=== PATIENT | female | born 1940 | race Caucasian/White ===

== ENCOUNTER 2017-05-16 13:45 | Inpatient (IN) | payer OTHER ==
[~2017-05-16] VITALS: Ht 144.8 cm; Wt 101.3 kg
[~2017-05-16 13:45] MED LIST: COL100 PO; ENALAPRIL10 M1 PO; FLAGYL500 MG PO; GLIPIZIDE10 MG PO; LAC PO; LANTUS SOLOS100 U/M1 SQ; LEVAQUIN500 MG PO; LORAZEPAM1 MG PO; METFORMIN HCL1000 MG PO; NITROGLYCERIN0.4 MG SL; REGLAN10 MG PO
[2017-05-16 14:52] LABS: BASOPHIL % 0.9 % (0-2); PLATELET COUNT 337 x10^3mcL (130-400)
[2017-05-16 14:58] LABS: RED CELL DISTRIBUTION WIDTH 15.1 % (11.5-14.5)
[2017-05-16] MEDS ORDERED: COQ1050 MG PO (15:56)
[2017-05-16] MEDS ORDERED: ACTOS15 M1 PO (15:56)
[2017-05-16 16:30] LABS: CALCIUM 8.9 mg/dL (8.5-10.1); CARBON DIOXIDE 24.3 mmol/L (21-32); CHLORIDE SERUM 102 mmol/L (98-107); CREATININE SERUM 1.2 mg/dL (0.6-1.0); GLUCOSE SERUM 207 mg/dL (74-106); POTASSIUM SERUM 4.2 mmol/L (3.5-5.1); SODIUM SERUM 140 mmol/L (136-145)
[2017-05-16 16:35] LABS: ALBUMIN 3.4 g/dL (3.4-5.0); ALKALINE PHOSPHATASE 57 U/L (46-116); ALT/SGPT 14 U/L (14-59); AST/SGOT 12 U/L (15-37); BILIRUBIN TOTAL 0.27 mg/dL (0.20-1.00); TOTAL PROTEIN, SERUM 6.5 g/dL (6.4-8.2)
[2017-05-16 17:03] LABS: MAGNESIUM 1.8 mg/dL (1.8-2.4); PHOSPHOROUS 3.2 mg/dL (2.5-4.9); T3 TOTAL 0.9 ng/mL
[2017-05-16 17:07] LABS: CHOLESTEROL/HDL RATIO 2.8
[2017-05-16 17:11] VITALS: BP 120/78
[2017-05-16 17:13] LABS: FREE T4 1.29 ng/dL (0.76-1.46); FREE THYROXINE INDEX 3.9 ug/dL (1.4-4.5); T4(THYROXINE) 9.7 ug/dL (4.7-13.3)
[2017-05-16 18:47] LABS: microscopic required? NO
[2017-05-16 18:54] LABS: urine erythrocyte NEGATIVE (NEGATIVE)
[2017-05-16 19:03] LABS: AMPHETAMINE QUAL UR NONE DETECTED (NEG <=1000)
[2017-05-16 21:45] VITALS: BP 128/65
[2017-05-17 05:13] VITALS: BP 122/77; BP 157/75
[2017-05-17 06:50] LABS: CALCIUM 8.4 mg/dL (8.5-10.1); CARBON DIOXIDE 26.6 mmol/L (21-32); CHLORIDE SERUM 107 mmol/L (98-107); CREATININE SERUM 1.1 mg/dL (0.6-1.0); GLUCOSE SERUM 125 mg/dL (74-106); MAGNESIUM 1.9 mg/dL (1.8-2.4); PHOSPHOROUS 3.3 mg/dL (2.5-4.9); POTASSIUM SERUM 4.4 mmol/L (3.5-5.1); SODIUM SERUM 142 mmol/L (136-145)
[2017-05-17 06:51] LABS: BASOPHIL % 0.5 % (0-2); PLATELET COUNT 369 x10^3mcL (130-400)
[2017-05-17 09:15] VITALS: BP 136/59
[2017-05-17 12:32] VITALS: BP 177/83
[2017-05-17 17:24] VITALS: BP 129/62
[2017-05-17 20:14] VITALS: BP 149/75
[2017-05-18 05:59] VITALS: BP 134/73
[2017-05-18 07:01] LABS: CALCIUM 8.8 mg/dL (8.5-10.1); CARBON DIOXIDE 27.2 mmol/L (21-32); CHLORIDE SERUM 104 mmol/L (98-107); GLUCOSE SERUM 143 mg/dL (74-106); POTASSIUM SERUM 3.8 mmol/L (3.5-5.1); SODIUM SERUM 132 mmol/L (136-145)
[2017-05-18 07:12] LABS: BASOPHIL % 0.5 % (0-2); PLATELET COUNT 360 x10^3mcL (130-400); RED CELL DISTRIBUTION WIDTH 14.7 % (11.5-14.5)
[2017-05-18 10:01] VITALS: BP 153/73
[2017-05-18] MEDS ORDERED: COLACE100 MG PO (11:01)
[2017-05-18] MEDS ORDERED: ECO81 PO (11:02)
[2017-05-18] MEDS ORDERED: LIPI10 PO (11:02)
[2017-05-18] MEDS ORDERED: QUALITY CH PO (11:04)
[2017-05-18] MEDS ORDERED: LEXAPRO10 MG PO (11:52)
[2017-05-18] MEDS ORDERED: NITROSTAT0.4 MG SL (11:53)
[2017-05-18 13:13] VITALS: BP 132/64
[2017-05-18] MEDS ORDERED: HIBICLENS118 ML TOP (13:18)
[2017-05-18] MEDS ORDERED: BACO TOP (13:18)
[2017-05-18 15:40] VITALS: BP 132/64
[2017-05-18 17:10] VITALS: BP 155/79
[2017-05-18 19:04] VITALS: Ht 144.8 cm; Wt 101.3 kg
== END 2017-05-18 20:23 | disposition home or self-care (01) | DRG 205 ==
LOC: ED 13:45 → DU 15:46
PROVIDERS: Emergency Medicine; Family Medicine
DX: M94.0 Chondrocostal junction syndrome [Tietze] (principal); N17.0 Acute kidney failure with tubular necrosis; Z68.42 Body mass index [BMI] 45.0-49.9, adult; F41.1 Generalized anxiety disorder; F43.0 Acute stress reaction; K59.00 Constipation, unspecified; K43.9 Ventral hernia without obstruction or gangrene; D25.9 Leiomyoma of uterus, unspecified; I10 Essential (primary) hypertension; E11.65 Type 2 diabetes mellitus with hyperglycemia; E11.51 Type 2 diabetes mellitus with diabetic peripheral angiopathy without gangrene; E78.5 Hyperlipidemia, unspecified; E66.01 Morbid (severe) obesity due to excess calories; Z22.322 Carrier or suspected carrier of Methicillin resistant Staphylococcus aureus
CPT/HCPCS: 82962; 83880; 84439; J3010; J7030; Q0092

== ENCOUNTER 2017-07-02 10:28 | Emergency (ER) | payer OTHER ==
[~2017-07-02] VITALS: Ht 121.9 cm; Wt 99.8 kg
[~2017-07-02 10:28] MED LIST changes: +ACTOS15 M1 PO; +BACO TOP; +COLACE100 MG PO; +COQ1050 MG PO; +ECO81 PO; +HIBICLENS118 ML TOP; +LEXAPRO10 MG PO; +LIPI10 PO; +NITROSTAT0.4 MG SL; +QUALITY CH PO
[2017-07-02 10:33] VITALS: Ht 121.9 cm; Wt 99.8 kg
[2017-07-02 11:35] LABS: BASOPHIL % 0.1 % (0-2); PLATELET COUNT 371 x10^3mcL (130-400); RED CELL DISTRIBUTION WIDTH 14.5 % (11.5-14.5)
[2017-07-02 11:57] LABS: CALCIUM 9.2 mg/dL (8.5-10.1); CARBON DIOXIDE 26.1 mmol/L (21-32); CHLORIDE SERUM 102 mmol/L (98-107); CREATININE SERUM 1.2 mg/dL (0.6-1.0); GLUCOSE SERUM 343 mg/dL (74-106); POTASSIUM SERUM 4.5 mmol/L (3.5-5.1); SODIUM SERUM 136 mmol/L (136-145)
[2017-07-02 12:01] LABS: ALKALINE PHOSPHATASE 62 U/L (46-116); ALT/SGPT 16 U/L (14-59); AST/SGOT 10 U/L (15-37); BILIRUBIN TOTAL 0.3 mg/dL (0.20-1.00); TOTAL PROTEIN, SERUM 6.2 g/dL (6.4-8.2)
[2017-07-02 12:15] LABS: ALBUMIN 3.3 g/dL (3.4-5.0)
[2017-07-02 13:37] VITALS: BP 144/76
== END 2017-07-02 13:37 | disposition home or self-care (01) ==
LOC: ED 10:28
PROVIDERS: Emergency Medicine
DX: H81.10 Benign paroxysmal vertigo, unspecified ear (principal); I10 Essential (primary) hypertension; E11.9 Type 2 diabetes mellitus without complications; Z90.49 Acquired absence of other specified parts of digestive tract; Z88.5 Allergy status to narcotic agent
CPT/HCPCS: 36415; Q0092

== ENCOUNTER 2018-06-08 20:24 | Inpatient (IN) | payer OTHER ==
[~2018-06-08] VITALS: Ht 144.8 cm; Wt 88.5 kg
[2018-06-08 20:55] LABS: BASOPHIL % 0.1 % (0-2); PLATELET COUNT 366 x10^3mcL (130-400)
[2018-06-08 21:05] LABS: RED CELL DISTRIBUTION WIDTH 14.6 % (11.5-14.5)
[2018-06-08 21:06] LABS: CALCIUM 8.7 mg/dL (8.5-10.1); CARBON DIOXIDE 22.1 mmol/L (21-32); CHLORIDE SERUM 101 mmol/L (98-107); CREATININE SERUM 1.9 mg/dL (0.6-1.0); GLUCOSE SERUM 223 mg/dL (74-106); POTASSIUM SERUM 4.3 mmol/L (3.5-5.1); SODIUM SERUM 137 mmol/L (136-145)
[2018-06-08 21:11] LABS: ALKALINE PHOSPHATASE 73 U/L (46-116); ALT/SGPT 20 U/L (14-59); AST/SGOT 14 U/L (15-37); BILIRUBIN TOTAL 0.5 mg/dL (0.20-1.00); TOTAL PROTEIN, SERUM 7.3 g/dL (6.4-8.2)
[2018-06-08 21:12] LABS: ALBUMIN 3.1 g/dL (3.4-5.0)
[2018-06-08 22:18] LABS: UA SPECIFIC GRAVITY >=1.030 (1.005-1.035); microscopic required? YES; urine erythrocyte NEGATIVE (NEGATIVE)
[2018-06-08] MEDS ORDERED: METFORMIN HCL1000 MG PO (22:20)
[2018-06-08] MEDS ORDERED: ACTOS15 M1 PO (22:20)
[2018-06-08] MEDS ORDERED: JANUVIA100 M1 PO (22:20)
[2018-06-08] MEDS ORDERED: ENALAPRIL MALEA10 MG PO (22:21)
[2018-06-08] MEDS ORDERED: MECLIZINE HYDRO25 M1 PO (22:21)
[2018-06-08] MEDS ORDERED: LIPI10 PO (22:21)
[2018-06-08] MEDS ORDERED: BAC (22:22)
[2018-06-08] MEDS ORDERED: GOOD SENSE OMEP20 MG PO (22:23)
[2018-06-08] MEDS ORDERED: STOOL SOFTENER100 MG PO (22:23)
[2018-06-08] MEDS ORDERED: CLARITIN10 MG PO (22:23)
[2018-06-08] MEDS ORDERED: CEPHALEXIN500 MG PO (22:24)
[2018-06-08] MEDS ORDERED: PREDNISONE20 MG PO (22:24)
[2018-06-08] MEDS ORDERED: ALBUTEROL0.63 MG/3 (22:25)
[2018-06-08 23:29] VITALS: BP 127/62
[2018-06-08 23:44] VITALS: BP 121/68
[2018-06-09 05:29] VITALS: BP 98/59
[2018-06-09 07:33] LABS: CALCIUM 8.2 mg/dL (8.5-10.1); CARBON DIOXIDE 20.8 mmol/L (21-32); CHLORIDE SERUM 106 mmol/L (98-107); CREATININE SERUM 2.2 mg/dL (0.6-1.0); GLUCOSE SERUM 245 mg/dL (74-106); POTASSIUM SERUM 4.1 mmol/L (3.5-5.1); SODIUM SERUM 138 mmol/L (136-145)
[2018-06-09 07:47] LABS: BASOPHIL % 0.3 % (0-2); PLATELET COUNT 316 x10^3mcL (130-400)
[2018-06-09 07:55] LABS: RED CELL DISTRIBUTION WIDTH 15.4 % (11.5-14.5)
[2018-06-09 08:46] VITALS: BP 99/56
[2018-06-09 09:08] VITALS: Ht 144.8 cm; Wt 88.5 kg
[2018-06-09 13:11] VITALS: BP 129/71
[2018-06-09 17:01] VITALS: BP 112/63
[2018-06-09 20:49] VITALS: BP 120/52
[2018-06-10 05:22] VITALS: BP 92/56
[2018-06-10 06:28] LABS: ALKALINE PHOSPHATASE 55 U/L (46-116); ALT/SGPT 10 U/L (14-59); AST/SGOT 14 U/L (15-37); BILIRUBIN TOTAL 0.25 mg/dL (0.20-1.00); CALCIUM 8.6 mg/dL (8.5-10.1); CARBON DIOXIDE 25.8 mmol/L (21-32); CHLORIDE SERUM 109 mmol/L (98-107); CREATININE SERUM 2.3 mg/dL (0.6-1.0); GLUCOSE SERUM 90 mg/dL (74-106); POTASSIUM SERUM 4.2 mmol/L (3.5-5.1); SODIUM SERUM 144 mmol/L (136-145)
[2018-06-10 06:56] LABS: BASOPHIL % 0.3 % (0-2); PLATELET COUNT 346 x10^3mcL (130-400); RED CELL DISTRIBUTION WIDTH 14.9 % (11.5-14.5)
[2018-06-10 07:07] LABS: ALBUMIN 2.1 g/dL (3.4-5.0); TOTAL PROTEIN, SERUM 5.8 g/dL (6.4-8.2)
[2018-06-10 09:02] VITALS: BP 110/57
[2018-06-10 12:15] VITALS: BP 108/62
[2018-06-10 17:55] VITALS: BP 107/61
[2018-06-10 21:33] VITALS: BP 97/54
[2018-06-11 06:19] LABS: BASOPHIL % 0.1 % (0-2)
[2018-06-11 06:26] LABS: CALCIUM 8.8 mg/dL (8.5-10.1); CARBON DIOXIDE 25.3 mmol/L (21-32); CHLORIDE SERUM 108 mmol/L (98-107); CREATININE SERUM 1.8 mg/dL (0.6-1.0); GLUCOSE SERUM 111 mg/dL (74-106); POTASSIUM SERUM 4.6 mmol/L (3.5-5.1); SODIUM SERUM 142 mmol/L (136-145)
[2018-06-11 06:36] VITALS: BP 134/72
[2018-06-11 06:41] LABS: PLATELET COUNT 437 x10^3mcL (130-400); RED CELL DISTRIBUTION WIDTH 15.4 % (11.5-14.5)
[2018-06-11 09:18] VITALS: BP 124/71
[2018-06-11 12:35] VITALS: BP 128/68
[2018-06-11 16:56] VITALS: BP 112/48
[2018-06-11 21:09] VITALS: BP 118/66
[2018-06-12 05:33] VITALS: BP 128/80
[2018-06-12 07:25] LABS: ALKALINE PHOSPHATASE 68 U/L (46-116); ALT/SGPT 14 U/L (14-59); AST/SGOT 17 U/L (15-37); BILIRUBIN TOTAL 0.2 mg/dL (0.20-1.00); CALCIUM 8.6 mg/dL (8.5-10.1); CARBON DIOXIDE 24.7 mmol/L (21-32); CHLORIDE SERUM 108 mmol/L (98-107); CREATININE SERUM 1.5 mg/dL (0.6-1.0); GLUCOSE SERUM 167 mg/dL (74-106); POTASSIUM SERUM 5.1 mmol/L (3.5-5.1); SODIUM SERUM 143 mmol/L (136-145)
[2018-06-12 07:26] LABS: ALBUMIN 2.2 g/dL (3.4-5.0); TOTAL PROTEIN, SERUM 5.6 g/dL (6.4-8.2)
[2018-06-12 07:56] LABS: BASOPHIL % 0 % (0-2); RED CELL DISTRIBUTION WIDTH 15.5 % (11.5-14.5)
[2018-06-12 07:57] LABS: PLATELET COUNT 501 x10^3mcL (130-400)
[2018-06-12 09:49] VITALS: BP 147/80
[2018-06-12 12:48] VITALS: BP 141/77
[2018-06-12 14:15] VITALS: BP 141/77
== END 2018-06-12 17:58 | disposition home or self-care (01) | DRG 177 ==
LOC: ED 20:24 → DU 22:41
PROVIDERS: Emergency Medicine; Internal Medicine; ADMIT Internal Medicine
DX: J69.0 Pneumonitis due to inhalation of food and vomit (principal); J96.21 Acute and chronic respiratory failure with hypoxia; N17.9 Acute kidney failure, unspecified; E66.2 Morbid (severe) obesity with alveolar hypoventilation; Z68.41 Body mass index [BMI] 40.0-44.9, adult; E11.65 Type 2 diabetes mellitus with hyperglycemia; J44.9 Chronic obstructive pulmonary disease, unspecified; I11.9 Hypertensive heart disease without heart failure; I25.10 Atherosclerotic heart disease of native coronary artery without angina pectoris; E78.5 Hyperlipidemia, unspecified; Z99.81 Dependence on supplemental oxygen; Z79.4 Long term (current) use of insulin
CPT/HCPCS: 82962; 87804; 97110-GP; 97530-GP; J0456; J0696; J1815; J2543; J7030; J7050; J7613; J7620; J7644; Q0092

== ENCOUNTER 2019-03-22 09:35 | Inpatient (IN) | payer OTHER ==
[~2019-03-22] VITALS: Ht 144.8 cm; Wt 92.1 kg
[~2019-03-22 09:35] MED LIST changes: +ALBUTEROL0.63 MG/3; +BAC; +CEPHALEXIN500 MG PO; +CLARITIN10 MG PO; +ENALAPRIL MALEA10 MG PO; +GOOD SENSE OMEP20 MG PO; +JANUVIA100 M1 PO; +MECLIZINE HYDRO25 M1 PO; +PREDNISONE20 MG PO; +STOOL SOFTENER100 MG PO
[2019-03-22 09:51] LABS: BASOPHIL % 0.5 % (0-2)
[2019-03-22 10:00] LABS: CALCIUM 8.7 mg/dL (8.5-10.1); CARBON DIOXIDE 25.4 mmol/L (21-32); CHLORIDE SERUM 105 mmol/L (98-107); CREATININE SERUM 1.5 mg/dL (0.6-1.0); GLUCOSE SERUM 218 mg/dL (74-106); POTASSIUM SERUM 4.5 mmol/L (3.5-5.1); SODIUM SERUM 143 mmol/L (136-145)
[2019-03-22 10:01] LABS: PLATELET COUNT 505 x10^3mcL (130-400); RED CELL DISTRIBUTION WIDTH 15.9 % (11.5-14.5)
[2019-03-22 10:05] LABS: ALBUMIN 3.3 g/dL (3.4-5.0); ALKALINE PHOSPHATASE 90 U/L (46-116); ALT/SGPT 14 U/L (14-59); AST/SGOT 16 U/L (15-37); BILIRUBIN DIRECT 0.07 mg/dL (0.0-0.2); BILIRUBIN TOTAL 0.3 mg/dL (0.20-1.00); LIPASE 81 IU/L (73-393); TOTAL PROTEIN, SERUM 6.8 g/dL (6.4-8.2)
[2019-03-22 12:55] VITALS: BP 144/76
[2019-03-22 13:14] LABS: CHOLESTEROL/HDL RATIO 2.4; MAGNESIUM 1.6 mg/dL (1.8-2.4)
[2019-03-22 13:22] LABS: microscopic required? NO
[2019-03-22 13:26] VITALS: BP 155/93
[2019-03-22 13:30] VITALS: Ht 144.8 cm; Wt 92.1 kg
[2019-03-22 13:39] LABS: urine erythrocyte NEGATIVE (NEGATIVE)
[2019-03-22 13:47] LABS: AMPHETAMINE QUAL UR NONE DETECTED (See below)
[2019-03-22 16:29] VITALS: BP 130/77
[2019-03-22 20:30] VITALS: BP 127/68
[2019-03-23 05:12] VITALS: BP 117/70
[2019-03-23 06:37] LABS: BASOPHIL % 0.9 % (0-2)
[2019-03-23 06:43] LABS: CALCIUM 8.6 mg/dL (8.5-10.1); CARBON DIOXIDE 30.1 mmol/L (21-32); CHLORIDE SERUM 105 mmol/L (98-107); CREATININE SERUM 1.4 mg/dL (0.6-1.0); GLUCOSE SERUM 182 mg/dL (74-106); POTASSIUM SERUM 4.7 mmol/L (3.5-5.1); SODIUM SERUM 144 mmol/L (136-145)
[2019-03-23 07:04] LABS: PLATELET COUNT 434 x10^3mcL (130-400); RED CELL DISTRIBUTION WIDTH 15.4 % (11.5-14.5)
[2019-03-23 08:17] VITALS: BP 148/75
[2019-03-23 11:20] VITALS: BP 137/84
[2019-03-23 17:11] VITALS: BP 116/50
[2019-03-23 20:00] VITALS: BP 116/57
[2019-03-24 05:49] VITALS: BP 103/50
[2019-03-24 06:36] LABS: BASOPHIL % 0.7 % (0-2); PLATELET COUNT 396 x10^3mcL (130-400)
[2019-03-24 06:38] LABS: CALCIUM 8.5 mg/dL (8.5-10.1); CARBON DIOXIDE 30.9 mmol/L (21-32); CHLORIDE SERUM 102 mmol/L (98-107); CREATININE SERUM 1.6 mg/dL (0.6-1.0); GLUCOSE SERUM 182 mg/dL (74-106); POTASSIUM SERUM 4.6 mmol/L (3.5-5.1); SODIUM SERUM 140 mmol/L (136-145)
[2019-03-24 06:44] LABS: RED CELL DISTRIBUTION WIDTH 15.3 % (11.5-14.5)
[2019-03-24 08:57] VITALS: BP 116/52
[2019-03-24 12:43] VITALS: BP 121/77
[2019-03-24 17:00] VITALS: BP 120/76
[2019-03-24 21:07] VITALS: BP 107/64
[2019-03-25 05:39] VITALS: BP 108/46
[2019-03-25 07:28] LABS: PLATELET COUNT 387 x10^3mcL (130-400)
[2019-03-25 07:59] LABS: RED CELL DISTRIBUTION WIDTH 15.3 % (11.5-14.5)
[2019-03-25 08:29] VITALS: BP 105/52
[2019-03-25 10:52] LABS: CARBON DIOXIDE 29.3 mmol/L (21-32); CHLORIDE SERUM 102 mmol/L (98-107); CREATININE SERUM 1.7 mg/dL (0.6-1.0); GLUCOSE SERUM 172 mg/dL (74-106); POTASSIUM SERUM 4.4 mmol/L (3.5-5.1); SODIUM SERUM 142 mmol/L (136-145)
[2019-03-25 12:00] VITALS: BP 124/71
[2019-03-25 13:06] VITALS: BP 124/71
== END 2019-03-25 15:26 | disposition home or self-care (01) | DRG 291 ==
LOC: ED 09:35 → DU 10:57
PROVIDERS: Student in an Organized Health Care Education/Training Program; ADMIT Internal Medicine
DX: I11.0 Hypertensive heart disease with heart failure (principal); J96.01 Acute respiratory failure with hypoxia; N17.9 Acute kidney failure, unspecified; J44.1 Chronic obstructive pulmonary disease with (acute) exacerbation; Z68.41 Body mass index [BMI] 40.0-44.9, adult; I50.33 Acute on chronic diastolic (congestive) heart failure; E11.65 Type 2 diabetes mellitus with hyperglycemia; K59.09 Other constipation; I25.10 Atherosclerotic heart disease of native coronary artery without angina pectoris; F41.9 Anxiety disorder, unspecified; E66.01 Morbid (severe) obesity due to excess calories; Z79.82 Long term (current) use of aspirin; Z79.84 Long term (current) use of oral hypoglycemic drugs
CPT/HCPCS: 82962; 83880; 94150; 97116-GP; G0378; J1265; J1644; J1940; J1956; J2270; J2930; J3490; J7030; J7040; J7613; J7620; J7626; Q0092

== ENCOUNTER 2019-04-22 16:22 | Emergency (ER) | payer OTHER ==
[~2019-04-22] VITALS: Ht 144.8 cm; Wt 80.7 kg
[2019-04-22 16:47] VITALS: Ht 144.8 cm; Wt 80.7 kg
[2019-04-22 17:39] LABS: BASOPHIL % 0.4 % (0-2); PLATELET COUNT 372 x10^3mcL (130-400)
[2019-04-22 17:40] LABS: RED CELL DISTRIBUTION WIDTH 15.3 % (11.5-14.5)
[2019-04-22 17:48] LABS: CALCIUM 8.9 mg/dL (8.5-10.1); CARBON DIOXIDE 29.9 mmol/L (21-32); CHLORIDE SERUM 101 mmol/L (98-107); CREATININE SERUM 1.6 mg/dL (0.6-1.0); GLUCOSE SERUM 250 mg/dL (74-106); POTASSIUM SERUM 4.1 mmol/L (3.5-5.1); SODIUM SERUM 138 mmol/L (136-145)
[2019-04-22 17:52] LABS: ALKALINE PHOSPHATASE 68 U/L (46-116); ALT/SGPT 13 U/L (14-59); AST/SGOT 11 U/L (15-37); BILIRUBIN TOTAL 0.24 mg/dL (0.20-1.00); LIPASE 145 IU/L (73-393); TOTAL PROTEIN, SERUM 6.5 g/dL (6.4-8.2)
[2019-04-22 17:53] LABS: ALBUMIN 3.2 g/dL (3.4-5.0)
[2019-04-22 18:05] LABS: microscopic required? NO
[2019-04-22 18:09] LABS: urine erythrocyte NEGATIVE (NEGATIVE)
[2019-04-22 20:23] VITALS: BP 109/54
== END 2019-04-22 20:27 | disposition home or self-care (01) ==
LOC: ED 16:22
PROVIDERS: Emergency Medicine
DX: K43.9 Ventral hernia without obstruction or gangrene (principal); E86.0 Dehydration; D64.9 Anemia, unspecified; J44.9 Chronic obstructive pulmonary disease, unspecified; I10 Essential (primary) hypertension; E11.9 Type 2 diabetes mellitus without complications; Z88.5 Allergy status to narcotic agent
CPT/HCPCS: 83880; J2405; J3010; J7030

== ENCOUNTER 2019-05-12 20:36 | Inpatient (IN) | payer OTHER ==
[~2019-05-12] VITALS: Ht 144.8 cm; Wt 82.6 kg
[2019-05-12 20:42] VITALS: Ht 144.8 cm; Wt 82.6 kg
[2019-05-12 21:42] LABS: BASOPHIL % 0.6 % (0-2)
[2019-05-12 21:43] LABS: PLATELET COUNT 445 x10^3mcL (130-400); RED CELL DISTRIBUTION WIDTH 16.4 % (11.5-14.5)
[2019-05-12] MEDS ORDERED: ELIQUIS5 MG PO (21:59)
[2019-05-12] MEDS ORDERED: DICYCLOMINE HYD10 M1 PO (22:00)
[2019-05-12] MEDS ORDERED: COZAAR25 M1 PO (22:01)
[2019-05-12] MEDS ORDERED: COREG3.125 MG PO (22:01)
[2019-05-12 22:02] LABS: CARBON DIOXIDE 28.3 mmol/L (21-32); CHLORIDE SERUM 106 mmol/L (98-107); GLUCOSE SERUM 126 mg/dL (74-106); POTASSIUM SERUM 4.5 mmol/L (3.5-5.1); SODIUM SERUM 142 mmol/L (136-145)
[2019-05-12] MEDS ORDERED: FEOSOL65 M1 PO (22:02)
[2019-05-12] MEDS ORDERED: LASIX40 MG PO (22:02)
[2019-05-12 22:03] LABS: ALBUMIN 3.1 g/dL (3.4-5.0); ALKALINE PHOSPHATASE 66 U/L (46-116); ALT/SGPT 12 U/L (14-59); AST/SGOT 8 U/L (15-37); BILIRUBIN TOTAL 0.2 mg/dL (0.20-1.00); CREATININE SERUM 1.5 mg/dL (0.6-1.0); LIPASE 190 IU/L (73-393); TOTAL PROTEIN, SERUM 6.1 g/dL (6.4-8.2)
[2019-05-12] MEDS ORDERED: ACTOS15 M1 PO (22:03)
[2019-05-12] MEDS ORDERED: METFORMIN HCL1000 M2 PO (22:04)
[2019-05-12] MEDS ORDERED: DOK COLACE100 MG PO (22:04)
[2019-05-12] MEDS ORDERED: ATI0.5 PO (22:04)
[2019-05-12] MEDS ORDERED: JANUVIA100 M1 PO (22:05)
[2019-05-12] MEDS ORDERED: NIT0.4 SL (22:05)
[2019-05-12 23:21] VITALS: BP 126/60
[2019-05-12 23:36] LABS: CHOLESTEROL/HDL RATIO 3.7; MAGNESIUM 2.3 mg/dL (1.8-2.4)
[2019-05-13 01:00] VITALS: BP 126/60
[2019-05-13 05:56] VITALS: BP 130/46
[2019-05-13 07:07] LABS: CARBON DIOXIDE 29.2 mmol/L (21-32); CHLORIDE SERUM 106 mmol/L (98-107); POTASSIUM SERUM 4.5 mmol/L (3.5-5.1); SODIUM SERUM 141 mmol/L (136-145)
[2019-05-13 07:08] LABS: CALCIUM 8.5 mg/dL (8.5-10.1); CREATININE SERUM 1.3 mg/dL (0.6-1.0); GLUCOSE SERUM 146 mg/dL (74-106)
[2019-05-13 08:34] LABS: UA SPECIFIC GRAVITY 1.015 (1.005-1.035); microscopic required? YES; urine erythrocyte 1+ (NEGATIVE)
[2019-05-13 08:39] LABS: AMPHETAMINE QUAL UR NONE DETECTED (See below)
[2019-05-13 09:06] VITALS: BP 149/44
[2019-05-13 13:23] VITALS: BP 115/51
[2019-05-13 16:33] VITALS: BP 101/44
[2019-05-13 20:47] VITALS: BP 119/52
[2019-05-14 06:19] VITALS: BP 140/71
[2019-05-14 09:13] VITALS: BP 131/53
[2019-05-14 13:41] VITALS: BP 107/44
[2019-05-14 15:56] VITALS: BP 107/44
== END 2019-05-14 16:55 | disposition home or self-care (01) | DRG 291 ==
LOC: ED 20:36 → DU 22:42
PROVIDERS: Emergency Medicine; ADMIT Internal Medicine
DX: I13.0 Hypertensive heart and chronic kidney disease with heart failure and stage 1 through stage 4 chronic kidney disease, or unspecified chronic kidney disease (principal); J96.01 Acute respiratory failure with hypoxia; I50.41 Acute combined systolic (congestive) and diastolic (congestive) heart failure; J44.1 Chronic obstructive pulmonary disease with (acute) exacerbation; N18.9 Chronic kidney disease, unspecified; E11.22 Type 2 diabetes mellitus with diabetic chronic kidney disease; I25.10 Atherosclerotic heart disease of native coronary artery without angina pectoris; K21.9 Gastro-esophageal reflux disease without esophagitis; Z68.35 Body mass index [BMI] 35.0-35.9, adult; Z79.01 Long term (current) use of anticoagulants; Z79.84 Long term (current) use of oral hypoglycemic drugs
CPT/HCPCS: 82962; 83880; 94150; 97116-GP; A9500; G0378; J0500; J1885; J2270; J2785; J7620; Q0092; Q9967

== ENCOUNTER 2019-06-18 14:38 | Emergency (ER) | payer OTHER ==
[~2019-06-18] VITALS: Ht 144.8 cm; Wt 74.8 kg
[~2019-06-18 14:38] MED LIST changes: +ATI0.5 PO; +COREG3.125 MG PO; +COZAAR25 M1 PO; +DICYCLOMINE HYD10 M1 PO; +DOK COLACE100 MG PO; +ELIQUIS5 MG PO; +FEOSOL65 M1 PO; +LASIX40 MG PO; +METFORMIN HCL1000 M2 PO; +NIT0.4 SL
[2019-06-18 14:45] VITALS: Ht 144.8 cm; Wt 74.8 kg
[2019-06-18 15:08] LABS: BASOPHIL % 0.5 % (0-2)
[2019-06-18 15:09] LABS: PLATELET COUNT 422 x10^3mcL (130-400); RED CELL DISTRIBUTION WIDTH 16.5 % (11.5-14.5)
[2019-06-18 15:15] LABS: CALCIUM 8.7 mg/dL (8.5-10.1); CHLORIDE SERUM 106 mmol/L (98-107); CREATININE SERUM 1.4 mg/dL (0.6-1.0); GLUCOSE SERUM 185 mg/dL (74-106); POTASSIUM SERUM 4.3 mmol/L (3.5-5.1); SODIUM SERUM 143 mmol/L (136-145)
[2019-06-18 15:19] LABS: ALKALINE PHOSPHATASE 59 U/L (46-116); ALT/SGPT 13 U/L (14-59); AST/SGOT 8 U/L (15-37); BILIRUBIN TOTAL 0.2 mg/dL (0.20-1.00); TOTAL PROTEIN, SERUM 6.6 g/dL (6.4-8.2)
[2019-06-18 15:20] LABS: ALBUMIN 3.3 g/dL (3.4-5.0)
[2019-06-18 18:22] VITALS: BP 113/57
== END 2019-06-18 18:22 | disposition home or self-care (01) ==
LOC: ED 14:38
PROVIDERS: Emergency Medicine
DX: R07.89 Other chest pain (principal); R06.02 Shortness of breath; R05 Cough; J44.9 Chronic obstructive pulmonary disease, unspecified; I50.9 Heart failure, unspecified; I10 Essential (primary) hypertension; E11.9 Type 2 diabetes mellitus without complications; Z88.6 Allergy status to analgesic agent; Z88.5 Allergy status to narcotic agent
CPT/HCPCS: 36415; 83880; Q0092

== ENCOUNTER 2019-07-24 20:18 | Inpatient (IN) | payer OTHER ==
[~2019-07-24] VITALS: Ht 144.8 cm; Wt 86.2 kg
[2019-07-24 20:49] LABS: BASOPHIL % 0.4 % (0-2)
[2019-07-24 20:50] LABS: PLATELET COUNT 433 x10^3mcL (130-400); RED CELL DISTRIBUTION WIDTH 15.7 % (11.5-14.5)
[2019-07-24 21:11] LABS: CALCIUM 9.3 mg/dL (8.5-10.1); CARBON DIOXIDE 28.9 mmol/L (21-32); CHLORIDE SERUM 104 mmol/L (98-107); CREATININE SERUM 1.4 mg/dL (0.6-1.0); GLUCOSE SERUM 98 mg/dL (74-106); SODIUM SERUM 142 mmol/L (136-145)
[2019-07-24 21:16] LABS: ALBUMIN 3.4 g/dL (3.4-5.0); ALKALINE PHOSPHATASE 64 U/L (46-116); ALT/SGPT 12 U/L (14-59); AST/SGOT 9 U/L (15-37); BILIRUBIN TOTAL 0.15 mg/dL (0.20-1.00); TOTAL PROTEIN, SERUM 6.7 g/dL (6.4-8.2)
[2019-07-25] VITALS (7 sets, daily range): BP systolic 108–161; BP diastolic 49–92
[2019-07-25 02:01] LABS: MAGNESIUM 2.2 mg/dL (1.8-2.4)
[2019-07-25 07:20] LABS: BASOPHIL % 0.4 % (0-2); PLATELET COUNT 366 x10^3mcL (130-400)
[2019-07-25 07:43] LABS: RED CELL DISTRIBUTION WIDTH 15.5 % (11.5-14.5)
[2019-07-25 09:21] LABS: CALCIUM 9.3 mg/dL (8.5-10.1); CARBON DIOXIDE 25.1 mmol/L (21-32); CHLORIDE SERUM 104 mmol/L (98-107); CREATININE SERUM 1.4 mg/dL (0.6-1.0); GLUCOSE SERUM 89 mg/dL (74-106); POTASSIUM SERUM 4.2 mmol/L (3.5-5.1); SODIUM SERUM 143 mmol/L (136-145)
[2019-07-25 12:35] LABS: microscopic required? NO
[2019-07-25 12:47] LABS: UA SPECIFIC GRAVITY 1.015 (1.005-1.035); urine erythrocyte NEGATIVE (NEGATIVE)
[2019-07-25 13:06] LABS: AMPHETAMINE QUAL UR NONE DETECTED (See below)
[2019-07-25] MEDS ORDERED: NASAL MIST126 ML (18:09)
[2019-07-25] MEDS ORDERED: LOMOTIL1 TAB PO (18:09)
== END 2019-07-25 18:32 | disposition home or self-care (01) | DRG 194 ==
LOC: ED 20:18 → DU 22:41
PROVIDERS: ADMIT Internal Medicine
DX: R09.1 Pleurisy (principal); E66.2 Morbid (severe) obesity with alveolar hypoventilation; K52.9 Noninfective gastroenteritis and colitis, unspecified; I11.0 Hypertensive heart disease with heart failure; I50.9 Heart failure, unspecified; I44.7 Left bundle-branch block, unspecified; I25.10 Atherosclerotic heart disease of native coronary artery without angina pectoris; J44.9 Chronic obstructive pulmonary disease, unspecified; E11.9 Type 2 diabetes mellitus without complications; E78.5 Hyperlipidemia, unspecified; D64.9 Anemia, unspecified; F41.9 Anxiety disorder, unspecified; Z22.322 Carrier or suspected carrier of Methicillin resistant Staphylococcus aureus; Z88.6 Allergy status to analgesic agent; Z88.5 Allergy status to narcotic agent; Z83.3 Family history of diabetes mellitus; Z82.49 Family history of ischemic heart disease and other diseases of the circulatory system
CPT/HCPCS: 82962; 83880; G0378; J7613; Q0092

== ENCOUNTER 2019-08-11 00:32 | Emergency (ER) | payer OTHER ==
[~2019-08-11] VITALS: Ht 144.8 cm; Wt 81.6 kg
[~2019-08-11 00:32] MED LIST changes: +LOMOTIL1 TAB PO; +NASAL MIST126 ML
[2019-08-11 00:35] VITALS: Ht 144.8 cm; Wt 81.6 kg
[2019-08-11 01:44] LABS: BASOPHIL % 0.7 % (0-2); RED CELL DISTRIBUTION WIDTH 14.4 % (11.5-14.5)
[2019-08-11 01:55] LABS: PLATELET COUNT 417 x10^3mcL (130-400)
[2019-08-11 02:53] LABS: CALCIUM 9.1 mg/dL (8.5-10.1); CARBON DIOXIDE 28.6 mmol/L (21-32); CHLORIDE SERUM 105 mmol/L (98-107); CREATININE SERUM 1.6 mg/dL (0.6-1.0); GLUCOSE SERUM 128 mg/dL (74-106); POTASSIUM SERUM 4.4 mmol/L (3.5-5.1); SODIUM SERUM 142 mmol/L (136-145)
[2019-08-11 02:58] LABS: ALBUMIN 3.3 g/dL (3.4-5.0); ALKALINE PHOSPHATASE 65 U/L (46-116); ALT/SGPT 12 U/L (14-59); AST/SGOT 6 U/L (15-37); TOTAL PROTEIN, SERUM 6.3 g/dL (6.4-8.2)
[2019-08-11 03:46] VITALS: BP 91/69
== END 2019-08-11 03:46 | disposition home or self-care (01) ==
LOC: ED 00:32
PROVIDERS: Emergency Medicine
DX: E88.81 Metabolic syndrome and other insulin resistance (principal); F41.9 Anxiety disorder, unspecified; E78.00 Pure hypercholesterolemia, unspecified; I50.9 Heart failure, unspecified; I11.0 Hypertensive heart disease with heart failure; E11.9 Type 2 diabetes mellitus without complications; Z88.6 Allergy status to analgesic agent; Z88.5 Allergy status to narcotic agent; Z86.79 Personal history of other diseases of the circulatory system
CPT/HCPCS: 36415; 83880